=== PATIENT | male | born 1975 | race Caucasian/White ===

== ENCOUNTER 2021-10-26 16:28 | Emergency (ER) | payer BC ==
[2021-10-26] MEDS ORDERED: Fluorescein 1 MG Ophth Strip EYELF ONE (16:49)
[2021-10-26] MEDS ORDERED: Proparacaine 0.5% Ophth Soln 15 ML Bottle EYELF ONE (16:50)
== END 2021-10-26 17:51 | disposition home or self-care (01) ==
LOC: JD.ED 16:28
DX: S05.02XA Injury of conjunctiva and corneal abrasion without foreign body, left eye, initial encounter (principal); H10.9 Unspecified conjunctivitis
CPT/HCPCS: 99282